=== PATIENT | female | born 1975 | race Caucasian/White ===

== ENCOUNTER 2023-01-13 09:50 | Emergency (ER) | payer MEDICAID ==
--- NOTE | 2023-01-13 09:57 | ERPHSYRPT ---
- History of Present Illness Time Seen by Provider: 01/13/23 09:57 Historian: patient, family Exam Limitations: no limitations Physician History: This is a 47-year-old white female who presents to the emergency department on her third visit in 18 days with right flank pain. She was seen on 12/26/2022 and found to have right mild hydronephrosis with partially obstructive right renal calculi and nonobstructing left renal calculi. 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 She was also found to have a urinary tract infection. She was given hydrocodone prescription and Cipro prescription at that time. She never picked up her medication and presented back to the emergency room on 12/27/2022 with same level of significant pain in the right flank area. They consulted Dr. Palmer who is a urologist at [facility] in [facility] and is transferred this patient to that facility. The patient underwent a urinary tract stent placement. Post stent placement she was given prescription for antibiotics and pain medicines. She completed both of those regimens. She is scheduled to have stent removal on 01/16/2023. Patient states that the sharp pain that is present is now constant in the right flank and lower abdomen. She has been vomiting for 3 days and has had some diarrhea in the last 2 days. Patient has a history of pneumonia, COPD, panic disorder. Timing/Duration: day(s) (3) Abdominal Pain Onset Location: RLQ, flank (Right) Pain Radiation: flank (Right) Severity of Pain-Max: moderate Severity of Pain-Current: moderate Modifying Factors: Improves With: vomiting Associated Symptoms: diarrhea, loss of appetite, nausea, vomiting Previous symptoms: same symptoms as today, recent hospitalization, recently treated, no recent treatment Allergies/Adverse Reactions: Penicillins Adverse Reaction (Intermediate, Verified 01/13/23 10:14) Hives Hx Tetanus, Diphtheria Vaccination/Date Given: Yes Hx Influenza Vaccination/Date Given: No Hx Pneumococcal Vaccination/Date Given: No Travel Risk - International Travel Have you traveled outside of the country in past 3 weeks: No - Coronavirus Screening Are you exhibiting any of the following symptoms?: Yes Symptoms: Vomiting/Diarrhea Close contact with a COVID-19 positive Pt in past 14-21 Days: No - Vaccine Status Have you recieved a Covid-19 vaccination: No - Review of Systems Constitutional: No Symptoms Eyes: No Symptoms Ears, Nose, & Throat: No Symptoms Respiratory: No Symptoms Cardiac: No Symptoms Abdominal/Gastrointestinal: Abdominal Pain (Right lower quadrant right suprapubic pain) Genitourinary Symptoms: Flank Pain (Right side) Musculoskeletal: No Symptoms Skin: No Symptoms Neurological: No Symptoms Psychological: No Symptoms Endocrine: No Symptoms Hematologic/Lymphatic: No Symptoms Immunological/Allergic: No Symptoms All Other Systems: Reviewed and Negative - Past Medical History Pertinent Past Medical History: Yes Neurological History: No Pertinent History ENT History: No Pertinent History Cardiac History: No Pertinent History Respiratory History: Bronchitis, COPD, Pneumonia, Sleep Apnea Endocrine Medical History: No Pertinent History Musculoskeletal History: Arthritis GI Medical History: No Pertinent History History: Other Psycho-Social History: Anxiety, Depression, Panic Disorder Female Reproductive Disorders: No Pertinent History Other Medical History: muldary kidney disease, frequent stones - Past Surgical History Past Surgical History: Yes Female Surgical History: Tubal Ligation Other Surgical History: Lt adrenalectomy - Social History Smoking Status: Current every day smoker How long have you smoked: 20 yrs Exposure to second hand smoke: Yes Drug Use: marijuana Patient Lives Alone: No - Nursing Vital Signs Nursing Vital Signs: Initial Vital Signs Temperature 99.4 F 01/13/23 10:07 Pulse Rate 98 H 01/13/23 10:07 Respiratory Rate 24 01/13/23 10:07 Blood Pressure 111/81 01/13/23 10:07 O2 Sat by Pulse Oximetry 98 01/13/23 10:07 Pain Scale Pain Intensity 8 - Physical Exam General Appearance: mild distress, alert (To moderate), anxiety, thin Eye Exam: PERRL/EOMI, eyes nml inspection Ears, Nose, Throat Exam: normal ENT inspection, moist mucous membranes Neck Exam: normal inspection, non-tender, supple, full range of motion Respiratory Exam: normal breath sounds, lungs clear, airway intact, No chest tenderness, No respiratory distress Cardiovascular Exam: regular rate/rhythm, normal heart sounds, normal peripheral pulses Gastrointestinal/Abdomen Exam: soft, normal bowel sounds, tenderness (Right lower quadrant right flank) Pelvic Exam: not done Rectal Exam: not done Back Exam: normal inspection, normal range of motion, CVA tenderness, No vertebral tenderness (Right) Extremity Exam: normal inspection, normal range of motion, pelvis stable Neurologic Exam: alert, oriented x 3, cooperative, boatswain mate II-XII nml as tested Skin Exam: normal color, warm, dry Lymphatic Exam: No adenopathy SpO2 Interpretation: normal O2 Delivery: Room Air - Course Nursing assessment & vital signs reviewed: Yes Ordered Tests: Active Orders 24 hr Category Date Time Status IV Insertion STAT Care 01/13/23 10:30 Active ABDOMEN AND PELVIS W/0 CONTRAS [CT] Stat Exams 01/13/23 10:30 Completed AMYLASE Stat Lab 01/13/23 10:45 Completed CBC W DIFF Stat Lab 01/13/23 10:45 Completed CMP Stat Lab 01/13/23 10:45 Completed CULTURE,URINE Stat Lab 01/13/23 Received LIPASE Stat Lab 01/13/23 10:45 Completed UA W/RFX UR CULTURE Stat Lab 01/13/23 Completed Medication Summary Discontinued Medications Generic Name Dose Route Start Last Admin Trade Name Freq PRN Reason Stop Dose Admin Hydromorphone HCl 1 mg 01/13/23 10:30 01/13/23 11:00 Hydromorphone 1 Mg/1ml Inj IV 01/13/23 10:31 1 mg STAT ONE Administration Hydromorphone HCl Confirm 01/13/23 10:58 Hydromorphone 1 Mg/1ml Inj Administered 01/13/23 10:59 Dose 1 mg .ROUTE .STK-MED ONE Sodium Chloride 1,000 mls @ 999 mls/hr 01/13/23 10:30 01/13/23 12:11 Sodium Chloride 0.9% 1000 Ml IV 01/13/23 11:30 Infused .Q1H1M STA Infusion Sodium Chloride Confirm 01/13/23 10:58 Sodium Chloride 0.9% 1000 Ml Administered 01/13/23 10:59 Dose 1,000 mls @ ud .ROUTE .STK-MED ONE Ceftriaxone Sodium/Dextrose 1 g in 50 mls @ 100 mls/hr 01/13/23 11:46 01/13/23 11:52 Rocephin 1 Gm-D5w 50 Ml Bag IV 01/13/23 12:15 100 mls/hr STAT STA 100 mls/hr Administration Ceftriaxone Sodium/Dextrose Confirm 01/13/23 11:50 Rocephin 1 Gm-D5w 50 Ml Bag Administered 01/13/23 11:51 Dose 1 g in 50 mls @ ud IV .STK-MED ONE Ketorolac Tromethamine 30 mg 01/13/23 10:30 01/13/23 11:00 Ketorolac Tromethamine 30 Mg/Ml Inj IV 01/13/23 10:31 30 mg STAT ONE Administration Ketorolac Tromethamine Confirm 01/13/23 10:58 Ketorolac Tromethamine 30 Mg/Ml Inj Administered 01/13/23 10:59 Dose 30 mg .ROUTE .STK-MED ONE Ondansetron HCl 4 mg 01/13/23 10:30 01/13/23 11:00 Ondansetron Hcl 4 Mg/2 Ml Vial IV 01/13/23 10:31 4 mg STAT ONE Administration Ondansetron HCl Confirm 01/13/23 10:58 Ondansetron Hcl 4 Mg/2 Ml Vial Administered 01/13/23 10:59 Dose 4 mg .ROUTE .STK-MED ONE Potassium Chloride 20 meq 01/13/23 11:47 01/13/23 11:50 Potassium Chloride Tab 10 Meq Tab PO 01/13/23 11:48 20 meq STAT ONE Administration Potassium Chloride Confirm 01/13/23 11:50 Potassium Chloride Tab 10 Meq Tab Administered 01/13/23 11:51 Dose 20 meq PO .STK-MED ONE Lab/Rad Data: Laboratory Result Diagrams 01/13/23 10:45 01/13/23 10:45 Laboratory Results 01/13/23 01/13/23 01/13/23 Range/Units Unknown 10:45 10:45 WBC (4.0-10.5) x10^3/uL RBC (4.1-5.4) x10^6/uL Hgb (12.0-16.0) g/dL Hct (35-47) % MCV (78-100) fL MCH (26-32) pg MCHC (32-36) g/dL RDW (11.5-14.0) % Plt Count (150-450) x10^3/uL MPV (7.5-11.0) fL Gran % (36.0-66.0) % Immature Gran % (Auto) (0.00-0.4) % Nucleat RBC Rel Count (0.00-0.1) % Eos # (Auto) (0-0.5) x10^3/uL Immature Gran # (Auto) (0.00-0.03) x10^3u/L Absolute Lymphs (auto) (1.0-4.6) x10^3/uL Absolute Monos (auto) (0.0-1.3) x10^3/uL Absolute Nucleated RBC (0.00-0.01) x10^3u/L Lymphocytes % (24.0-44.0) % Monocytes % (0.0-12.0) % Eosinophils % (0.00-5.0) % Basophils % (0.0-0.4) % Absolute Granulocytes (1.4-6.9) x10^3/uL Basophils # (0-0.4) x10^3/uL Sodium 133 L (137-145) mmol/L Potassium 3.3 L (3.5-5.1) mmol/L Chloride 99 (98-107) mmol/L Carbon Dioxide 20 L (22-30) mmol/L Anion Gap 16.6 H (5-15) MEQ/L BUN 14 (7-17) mg/dL Creatinine 0.67 (0.52-1.04) mg/dL Estimated GFR > 60.0 ML/MIN Glucose 162 H (74-106) mg/dL Calcium 8.8 (8.4-10.2) mg/dL Total Bilirubin 0.80 (0.2-1.3) mg/dL AST 440 H (14-36) U/L ALT 312 H (0-35) U/L Alkaline Phosphatase 225 H (38-126) U/L Serum Total Protein 7.5 (6.3-8.2) g/dL Albumin 4.2 (3.5-5.0) g/dL Amylase 45 (30-110) U/L Lipase 32 (23-300) U/L Urine Color Dark Yellow A (Yellow) Urine Appearance Clear (Clear) Urine pH 6.0 (4.6-8.0) Ur Specific [place] 1.020 (1.005-1.030) Urine Protein 300 A (Negative) Urine Glucose (UA) Negative (Negative) mg/dL Urine Ketones Trace A (Negative) Urine Blood Large A (Negative) Urine Nitrite Negative (Negative) Urine Bilirubin Small A (Negative) Urine Urobilinogen 2.0 A (0.2) mg/dL Ur Leukocyte Esterase Small A (Negative) U Hyaline Cast (Auto) NONE SEEN (0-2) /LPF Urine Microscopic RBC 51-100 A (0-5) /HPF Urine Microscopic WBC 21-50 A (0-5) /HPF Ur Epithelial Cells Many A (None Seen) /HPF Urine Bacteria Many A (None Seen) /HPF Ur Yeast w Hyphae Rare A (None Seen) /HPF Urine Yeast (Budding) Few A (None Seen) /HPF Urine Culture Reflexed YES (NO) Influenza Type A Ag NEGATIVE (NEGATIVE) Influenza Type B Ag NEGATIVE (NEGATIVE) RSV (PCR) NEGATIVE (NEGATIVE) SARS-CoV-2 (PCR) NEGATIVE (NEGATIVE) 01/13/23 Range/Units 10:45 WBC 7.1 (4.0-10.5) x10^3/uL RBC 4.50 (4.1-5.4) x10^6/uL Hgb 12.1 (12.0-16.0) g/dL Hct 37.4 (35-47) % MCV 83.1 (78-100) fL MCH 26.9 (26-32) pg MCHC 32.4 (32-36) g/dL RDW 15.2 H (11.5-14.0) % Plt Count 262 (150-450) x10^3/uL MPV 8.5 (7.5-11.0) fL Gran % 69.2 H (36.0-66.0) % Immature Gran % (Auto) 0.3 (0.00-0.4) % Nucleat RBC Rel Count 0.0 (0.00-0.1) % Eos # (Auto) 0 (0-0.5) x10^3/uL Immature Gran # (Auto) 0.02 (0.00-0.03) x10^3u/L Absolute Lymphs (auto) 1.51 (1.0-4.6) x10^3/uL Absolute Monos (auto) 0.64 (0.0-1.3) x10^3/uL Absolute Nucleated RBC 0.00 (0.00-0.01) x10^3u/L Lymphocytes % 21.2 L (24.0-44.0) % Monocytes % 9.0 (0.0-12.0) % Eosinophils % 0.0 (0.00-5.0) % Basophils % 0.3 (0.0-0.4) % Absolute Granulocytes 4.92 (1.4-6.9) x10^3/uL Basophils # 0.02 (0-0.4) x10^3/uL Sodium (137-145) mmol/L Potassium (3.5-5.1) mmol/L Chloride (98-107) mmol/L Carbon Dioxide (22-30) mmol/L Anion Gap (5-15) MEQ/L BUN (7-17) mg/dL Creatinine (0.52-1.04) mg/dL Estimated GFR ML/MIN Glucose (74-106) mg/dL Calcium (8.4-10.2) mg/dL Total Bilirubin (0.2-1.3) mg/dL AST (14-36) U/L ALT (0-35) U/L Alkaline Phosphatase (38-126) U/L Serum Total Protein (6.3-8.2) g/dL Albumin (3.5-5.0) g/dL Amylase (30-110) U/L Lipase (23-300) U/L Urine Color (Yellow) Urine Appearance (Clear) Urine pH (4.6-8.0) Ur Specific [place] (1.005-1.030) Urine Protein (Negative) Urine Glucose (UA) (Negative) mg/dL Urine Ketones (Negative) Urine Blood (Negative) Urine Nitrite (Negative) Urine Bilirubin (Negative) Urine Urobilinogen (0.2) mg/dL Ur Leukocyte Esterase (Negative) U Hyaline Cast (Auto) (0-2) /LPF Urine Microscopic RBC (0-5) /HPF Urine Microscopic WBC (0-5) /HPF Ur Epithelial Cells (None Seen) /HPF Urine Bacteria (None Seen) /HPF Ur Yeast w Hyphae (None Seen) /HPF Urine Yeast (Budding) (None Seen) /HPF Urine Culture Reflexed (NO) Influenza Type A Ag (NEGATIVE) Influenza Type B Ag (NEGATIVE) RSV (PCR) (NEGATIVE) SARS-CoV-2 (PCR) (NEGATIVE) - Progress Progress: improved, pain not gone completely, re-examined Progress Note: 01/13/23 11:50 This patient's medical issue is 1 of moderate complexity. Level complex in the work-up performed is based on review of the patient's past medical history, review the patient's medication list, review of the patient's drug allergy list, history of present illness and physical findings on examination. The work-up includes placement of intravenous line, infusion of normal saline solution, infusion of Toradol intravenously, infusion of Dilaudid and Zofran intravenousl y, CBC, CMP, amylase, lipase, urinalysis, CT scan of the abdomen and pelvis without contrast. I reviewed and interpreted the laboratory results. Patient does have a urinary tract infection. CT scan of the abdomen pelvis without contrast was interpreted by radiologist and I reviewed the interpretation. There is diminished right hydronephrosis. There is a new right double-J ureteral stent in situ. There is new right perinephric stranding possibly inflammatory/infectious. 01/13/23 12:18 Patient reexamined. Patient is much more comfortable. I am awaiting a callback from the patient's urologist, Dr. Vallecillo. I want to review the CT scan report with him to make sure that he feels the patient can be discharged to home. If she is able to be discharged to home, a prescription for cefdinir antibiotic and [place] 5/325 will be remotely sent to her pharmacy. 01/13/23 12:[address] Vallecillo, the patient's urologist on his cell phone [phone]. I reviewed the CT scan results with him. He agrees that the patient can be discharged home with antibiotics and pain medication prescriptions. I spoke with the patient about her elevated liver function test and she will follow-up with this. Her pain is under much better control. 01/13/23 12:25 Counseled pt/family regarding: lab results, diagnosis, need for follow-up, rad results Medical Desision Making - Independent Historian Additional History obtained from: Family (Sister) - Discussion of managment Care discussed with:: specialist (Dr. Walsh, the patient's urologist) Reviewed:: Test results Will see patient: in hospital - Diagnostic Testing Diagnostic test were ordered, analyzed, and reviewed by me: Yes Radiological Interpretation: Reviewed by me, Teleradiologist Report - Risk of complications The pt has a mod risk of morbidity or mortality based on: Need for prescription drug management - Departure Departure Disposition: Home Clinical Impression: UTI (urinary tract infection), Flank pain, Elevated liver enzymes Condition: Stable Critical Care Time: No Referrals: DOCTOR,NO FAMILY [Primary Care Provider] - Follow up/PCP as directed Additional Instructions: Drink plenty fluids. Take 600 mg ibuprofen with food 3 times a day for the next 5 days. Take your antibiotics as prescribed. Keep your ureteral stent removal appointment with your urologist on 01/16/2023. Prescriptions: Ondansetron ODT 4 MG [Zofran Odt 4 mg] 4 mg PO Q6H PRN PRN #10 tablet PRN Reason: Vomiting Hydrocodone/APAP 5/325 [[place] 5/325 mg] 1 each PO Q8H PRN PRN #9 tablet MDD 3 PRN Reason: Pain Cefdinir 300 mg PO BID 7 Days #14 cap
[2023-01-13 10:19] VITALS: TEMP 99.4
[2023-01-13] MEDS ORDERED: Zofran 4 MG/2 ML VIAL IV ONE ×2 (10:30→13:28)
[2023-01-13] MEDS ORDERED: TORAdol 30 mg Injection IV ONE (10:30)
[2023-01-13] MEDS ORDERED: Sodium Chloride 0.9% 1000 ML 1,000 ML IV STA ×2 (10:30→13:58)
[2023-01-13] MEDS ORDERED: Hydromorphone 1 mg/ml Injection IV ONE (10:30)
[2023-01-13 10:58] LABS: Absolute Neutrophil Ct (ANC) 4.92 x10^3/uL (1.4-6.9); BASOPHIL % 0.3 % (0.0-0.4); Basophil (Absolute #) 0.02 x10^3/uL (0-0.4); Eosinophil (Absolute #) 0 x10^3/uL (0-0.5); Hematocrit 37.4 % (35-47); Hemoglobin 12.1 g/dL (12.0-16.0); IMMATURE GRAN # 0.02 x10^3u/L (0.00-0.03); IMMATURE GRAN % 0.3 % (0.00-0.4); Lymphocyte (Absolute #) 1.51 x10^3/uL (1.0-4.6); Lymphocytes % 21.2 % (24.0-44.0); Mean Cell Volume 83.1 fL (78-100); Mean Corpuscular Hemoglobin 26.9 pg (26-32); Mean Corpuscular Hgb Concent. 32.4 g/dL (32-36); Mean Platelet Volume 8.5 fL (7.5-11.0); Monocyte (Absolute #) 0.64 x10^3/uL (0.0-1.3); Neutrophil % 69.2 % (36.0-66.0); Platelet Count 262 x10^3/uL (150-450); Red Cell Distribution Width 15.2 % (11.5-14.0); White Blood Count 7.1 x10^3/uL (4.0-10.5)
[2023-01-13] MEDS ORDERED: TORAdol 30 mg Injection ONE (10:58)
[2023-01-13] MEDS ORDERED: Zofran 4 MG/2 ML VIAL ONE ×2 (10:58→13:29)
[2023-01-13] MEDS ORDERED: Sodium Chloride 0.9% 1000 ML 1,000 ML ONE ×2 (10:58→14:00)
[2023-01-13] MEDS ORDERED: Hydromorphone 1 mg/ml Injection ONE (10:58)
[2023-01-13 11:10] LABS: ALBUMIN 4.2 g/dL (3.5-5.0); ALKALINE PHOSPHATASE 225 U/L (38-126); AMYLASE 45 U/L (30-110); ANION GAP 16.6 MEQ/L (5-15); BLOOD UREA NITROGEN 14 mg/dL (7-17); CHLORIDE 99 mmol/L (98-107); Calcium 8.8 mg/dL (8.4-10.2); Carbon Dioxide 20 mmol/L (22-30); Creatinine 1 0.67 mg/dL (0.52-1.04); EST GLOMERULAR FILTRATION RATE > 60.0 ML/MIN; Glucose 162 mg/dL (74-106); LIPASE 32 U/L (23-300); Potassium 3.3 mmol/L (3.5-5.1); SGOT/AST 440 U/L (14-36); SGPT/ALT 312 U/L (0-35); SODIUM 133 mmol/L (137-145); Total Protein 7.5 g/dL (6.3-8.2)
[2023-01-13 11:25] LABS: Appearance Clear (Clear); Bacteria Many /HPF (None Seen); Bilirubin Small (Negative); Blood Large (Negative); Epithelial Cells Many /HPF (None Seen); Glucose, Urine Negative (Negative); Hyaline Casts NONE SEEN /LPF (0-2); Ketones Trace (Negative); Leukocyte Esterase Small (Negative); Nitrite Negative (Negative); Protein,Urine Dip 300 (Negative); RBC 51-100 /HPF (0-5)
[2023-01-13 11:26] LABS: ADD URINE CULTURE? YES (NO); Budding Yeast Few /HPF (None Seen); Hyphae Yeast Rare /HPF (None Seen); WBC 21-50 /HPF (0-5)
--- NOTE | 2023-01-13 11:34 | XRAY ---
Indication: Right flank pain. Multiple contiguous axial images obtained through the abdomen pelvis without contrast using renal stone protocol. Comparison: December 26, 2022 Lung bases demonstrate worsening mild bibasilar subsegmental atelectasis/scarring. Heart not enlarged. New right double-J ureteral stent catheter in situ with diminished hydronephrosis. New mild right perinephric stranding possibly inflammatory/infectious. Lack of IV contrast precludes further characterization. No hydroureter. Again numerous bilateral renal micro-calculi. Noncontrasted stomach and bowel loops appear nonobstructed again with normal appendix. No free fluid/air. Stable porcelain gallbladder and surgical clips medial to left kidney. Remaining liver, pancreas, spleen, adrenal glands, bladder, and uterus are unremarkable for noncontrast exam. Again minimal distal aortic calcifications without AAA. Osseous structures intact. Impression: 1. New right double-J ureteral stent catheter in situ. New right perinephric stranding possibly inflammatory/infectious. Grossly stable bilateral renal micro-calculi. 2. 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
[2023-01-13 11:35] LABS: INFLUENZA A NEGATIVE (NEGATIVE); INFLUENZA B NEGATIVE (NEGATIVE); RESPIRATORY SYNCTIAL VIRUS NEGATIVE (NEGATIVE); SARS-CoV-2 Xpert Express NEGATIVE (NEGATIVE)
[2023-01-13 11:42] VITALS: RESP 13
[2023-01-13] MEDS ORDERED: ROCEPHIN 1 Gm-D5w 50 ml Bag** 1 G/50 ML IVPB IV STA (11:46)
[2023-01-13] MEDS ORDERED: Klor Con PO ONE ×2 (11:47→11:50)
[2023-01-13] MEDS ORDERED: ROCEPHIN 1 Gm-D5w 50 ml Bag** 1 G/50 ML IVPB IV ONE (11:50)
[2023-01-13 12:04] VITALS: BP 92/67; PULSE 75; O2SAT 96
[2023-01-13] MEDS ORDERED: Sodium Chloride 0.9% 500 ML 500 ML IV ONE ×2 (12:36→12:39)
== END 2023-01-13 14:59 | disposition home or self-care (01) ==
LOC: ED 09:50
DX: N39.0 Urinary tract infection, site not specified (principal); R10.9 Unspecified abdominal pain; R94.5 Abnormal results of liver function studies; R11.2 Nausea with vomiting, unspecified; Z79.891 Long term (current) use of opiate analgesic; Z28.310 Unvaccinated for COVID-19; Z72.0 Tobacco use
CPT/HCPCS: 0241U; 36000; 36415; 74176; 80053; 81001; 82150; 83690; 85025; 87086; 96360; 96374; 96375; 96376; 99284; 96361; 96365; J0696; J1170; J1885; J2405; A9270-GY